=== PATIENT | female | born 1975 | race Caucasian/White ===

== ENCOUNTER 2018-11-12 11:20 | Emergency (ER) | payer OTHER ==
[2018-11-12 11:21] VITALS: BMI 24.2
[2018-11-12 11:51] VITALS: RESP 18; TEMP 97.8
[2018-11-12] MEDS ORDERED: DiphenhydrAMINE 50 mg/ml Inj IVP STA (12:15)
--- NOTE | 2018-11-12 12:17 | ED PDOC ---
Arrival/HPI - General Chief Complaint: Headache Time Seen by Provider: 11/12/18 12:14 Historian: Patient - History of Present Illness Narrative History of Present Illness (Text): 11/12/18 12:14 43 y/o female, pmh including dm, nkda, c/o headache and vomiting x 4 days. Pt. stated that she gets frontal headache with sinus congestion, associated with vomiting for past 2 days, not the worst headache of her life, no numbness or tingling, no rash, no dizziness, no change in vision, no diarrhea, no other medical or psychological complaints. 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 a 50lbs box fell on her head in 03/2014 - Endocrine/Metabolic Hx Diabetes Mellitus Type 2: Yes - Psychiatric Hx Substance Use: No - Surgical History Hx Section: Yes (x2) Family/Social History - Physician Review Nursing Documentation Reviewed: Yes Family/Social History: Unknown Family HX Smoking Status: Never Smoked Hx Alcohol Use: No Hx Substance Use: No Allergies/Home Meds Allergies/Adverse Reactions: Allergies No Known Allergies Allergy (Verified 11/12/18 11:50) Home Medications: Home Meds Medication Instructions Recorded Confirmed glyBURIDE [Micronase] 5 mg PO DAILY 11/12/18 11/12/18 metFORMIN [glucOPHAGE] 500 mg PO BID 11/12/18 11/12/18 Review of Systems - Review of Systems Constitutional: absent: Fatigue Eyes: absent: Vision Changes ENT: Sinus Congestion. absent: Hearing Changes Respiratory: absent: SOB, Cough Cardiovascular: absent: Chest Pain Gastrointestinal: Vomiting. absent: Abdominal Pain, Diarrhea, Nausea Neurological: Headache. absent: Dizziness, Focal Weakness Psychiatric: absent: Anxiety, Depression, Suicidal Ideation Physical Exam Vital Signs Reviewed: Yes Vital Signs Temp Pulse Resp BP Pulse Ox 11/12/18 11:47 97.8 F 94 H 18 141/94 H 97 Temperature: Afebrile Blood Pressure: Hypertensive Pulse: Regular Respiratory Rate: Normal Appearance: Positive for: Well-Appearing, Non-Toxic, Comfortable Pain Distress: None Mental Status: Positive for: Alert and Oriented X 3 - Systems Exam Head: Present: Atraumatic, Normocephalic, Other (+ttp on the left sinus region) Pupils: Present: PERRL Extroacular Muscles: Present: EOMI Conjunctiva: Present: Normal Mouth: Present: Moist Mucous Membranes Nose (External): Present: Atraumatic. No: Abrasion, Contusion, Laceration, Lesions Nose (Internal): Present: Normal Inspection, No Active Bleeding. No: Rhinorrhea, Septal Hematoma, Epistaxis Neck: Present: Normal Range of Motion, Trachea Midline. No: Meningeal Signs, MIDLINE TENDERNESS, Paraspinal Tenderness, Lymphadenopathy Respiratory/Chest: Present: Clear to Auscultation, Good Air Exchange. No: Respiratory Distress, Accessory Muscle Use, Wheezes, Decreased Breath Sounds, Rales, Retracting, Rhonchi, Tachypneic Cardiovascular: Present: Regular Rate and Rhythm, Normal S1, S2. No: Murmurs Abdomen: No: Tenderness, Distention, Peritoneal Signs Back: Present: Normal Inspection Upper Extremity: Present: Normal Inspection. No: Cyanosis, Edema Lower Extremity: Present: Normal Inspection. No: Edema Neurological: Present: GCS=15, CN II-XII Intact, Speech Normal, Motor Func Grossly Intact, Normal Cerebellar Funct, Gait Normal, Memory Normal, Other (no focal neurological deficits, normal finger to nose, normal heel to christensen test) Skin: Present: Warm, Dry, Normal Color. No: Rashes Psychiatric: Present: Alert, Oriented x 3, Normal Insight, Normal Concentration Medical Decision Making ED Course and Treatment: 11/12/18 12:18 -labs -CT head -IV toradol/benadryl/fluid -Observe and reassess 11/12/18 15:09 -Urine hcg is negative -CT head Normal CT of the Head. -Labs show no acute findings except BUN 38 (IVF ordered) -UA show no UTI. -pt. feels completely relief, asymptomatic now. -Discharge home with augmentin, motrin, zofran prn, follow up with your own pmd and neurologist plus ENT within 2 days, return to the ER for any new or worsening signs or symptoms. - RAD Interpretation Radiology Orders: 11/12/18 12:14 HEAD W/O CONTRAST [CT] Stat Date of service: 11/12/2018 PROCEDURE: CT HEAD WITHOUT CONTRAST. HISTORY: headache COMPARISON: None available. TECHNIQUE: Axial computed tomography images were obtained through the head/brain without intravenous contrast. Radiation dose: Total exam DLP = 788.16 mGy-cm. This CT exam was performed using one or more of the following dose reduction techniques: Automated exposure control, adjustment of the mA and/or kV according to patient size, and/or use of iterative reconstruction technique. FINDINGS: HEMORRHAGE: No intracranial hemorrhage. BRAIN: No mass effect or edema. No atrophy or chronic microvascular ischemic changes. VENTRICLES: Unremarkable. No hydrocephalus. CALVARIUM: Unremarkable. PARANASAL SINUSES: Unremarkable as visualized. No significant inflammatory changes. MASTOID AIR CELLS: Unremarkable as visualized. No inflammatory changes. OTHER FINDINGS: None. IMPRESSION: Normal CT of the Head. Biology Internship: Radiologist - PA / FRONT DESK ADMIN / Resident Statement / has reviewed & agrees with the documentation as recorded. Disposition/Present on Arrival - Present on Arrival Any Indicators Present on Arrival: No History of DVT/PE: No History of Uncontrolled Diabetes: Yes Urinary Catheter: No History of Decub. Ulcer: No History Surgical Site Infection Following: None - Disposition Have Diagnosis and Disposition been Completed?: Yes Diagnosis: Headache, Sinusitis, Dehydration Disposition: HOME/ ROUTINE Disposition Time: 12:18 Patient Plan: Discharge Condition: IMPROVED Additional Instructions: -Discharge home with augmentin, motrin, zofran prn, follow up with your own pmd and neurologist plus ENT within 2 days, return to the ER for any new or worsening signs or symptoms. Prescriptions: Amoxicillin/Clavulanate [Augmentin 875 MG-125 MG] 1 tab PO BID #14 tab Ibuprofen [Motrin] 600 mg PO QID PRN #30 tab PRN Reason: Other Ondansetron ODT [Zofran ODT] 4 mg PO TID PRN #12 odt PRN Reason: Other Referrals: Diana Alvarez MD [Staff Provider] - Follow up with primary Scott Wright DO [Staff Provider] - [place] up [place] [facility] [place] - Follow up with primary Forms: [employer] (Lebanese), WORK NOTE
[2018-11-12 13:36] LABS: BASO # 0.06 K/mm3 (0.0-2.0); BASO % 0.6 % (0.0-3.0); EOS # 0.1 (0.0-0.7); EOS % 1.2 % (1.5-5.0); HEMOGLOBIN 12.6 g/dL (12.0-16.0); LYMPH # 2.7 (1.2-3.4); LYMPH % 28.8 % (22.0-35.0); MEAN CELL VOLUME 78.2 fl (80.0-105.0); MEAN CORPUSCULAR HEMOGLOBIN 24.1 pg (25.0-35.0); MEAN CORPUSCULAR HGB CONC 30.8 g/dl (31.0-37.0); MEAN PLATELET VOLUME 10.9 fl (7.0-11.0); MONO # 0.6 (0.1-0.6); RBC 5.23 10^6/uL (3.5-6.1); RED CELL DISTRIBUTION WIDTH 17.3 % (11.5-14.5); URINE BILIRUBIN NEGATIVE (NEGATIVE); URINE BLOOD SMALL (NEGATIVE); URINE GLUCOSE (UA) 250 mg/dL (NEGATIVE); URINE LEUKOCYTE ESTERASE NEGATIVE Leu/uL (NEGATIVE); URINE PROTEIN >=300 mg/dL (<30 mg/dL); WHITE BLOOD COUNT 9.4 10^3/uL (4.5-11.0)
[2018-11-12 13:40] LABS: URINE APPEARANCE TURBID (CLEAR); URINE COLOR YELLOW (YELLOW)
[2018-11-12 13:48] LABS: URINE RBC 0 - 2 /hpf (0-2)
[2018-11-12 13:49] LABS: URINE BACTERIA MANY /hpf; URINE FINE GRANULAR CAST 0 - 2 /hpf; URINE HYALINE CAST 0 - 2 /hpf
[2018-11-12 13:54] LABS: ALB/GLOB RATIO 0.9 (1.1-1.8); ALBUMIN 3.3 g/dL (3.0-4.8); CALCIUM 9.5 mg/dL (8.4-10.5)
[2018-11-12] MEDS ORDERED: Sodium Chloride 0.9% 1,000 ML IV STA (13:55)
--- NOTE | 2018-11-12 14:49 | CT ---
Date of service: 11/12/2018 PROCEDURE: CT HEAD WITHOUT CONTRAST. HISTORY: headache COMPARISON: None available. TECHNIQUE: Axial computed tomography images were obtained through the head/brain without intravenous contrast. Radiation dose: Total exam DLP = 788.16 mGy-cm. This CT exam was performed using one or more of the following dose reduction techniques: Automated exposure control, adjustment of the mA and/or kV according to patient size, and/or use of iterative reconstruction technique. FINDINGS: HEMORRHAGE: No intracranial hemorrhage. BRAIN: No mass effect or edema. No atrophy or chronic microvascular ischemic changes. VENTRICLES: Unremarkable. No hydrocephalus. CALVARIUM: Unremarkable. PARANASAL SINUSES: Unremarkable as visualized. No significant inflammatory changes. MASTOID AIR CELLS: Unremarkable as visualized. No inflammatory changes. OTHER FINDINGS: None. IMPRESSION: Normal CT of the Head.
[2018-11-12 15:19] VITALS: BP 131/83; PULSE 84; O2SAT 99
== END 2018-11-12 15:22 | disposition home or self-care (01) ==
LOC: ED 11:20
DX: J32.9 Chronic sinusitis, unspecified (principal); E86.0 Dehydration; R51 Headache; E11.9 Type 2 diabetes mellitus without complications
CPT/HCPCS: 70450; 80053; 81001; 81025; 85025; 96374; 96375; 99285; J1200; J1885; J7030